=== PATIENT | female | born 1985 | race Caucasian/White ===

== ENCOUNTER 2019-08-01 07:48 | Outpatient (CLI) | payer OTHER ==
--- NOTE | 2019-08-01 09:09 | ULT ---
PELVIC ULTRASOUND INCLUDING TRANSABDOMINAL AND TRANSVAGINAL AND VASCULAR DUPLEX WITH COLOR AND SPECTR AL DOPPLER IMAGING: HISTORY: Ovarian cyst. COMPARISON: None. FINDINGS: The uterus measures 6.5 x 4.5 x 3.1 cm. The endometrium approximates 0.2 cm. Right ovary measures 1 .2 x 1.2 x 2.7 cm. The left ovary is not visualized. No evidence for significant ovarian cyst. No abscess or abnormal fluid collection. IMPRESSION: Nonvisualized left ovary. Unremarkable uterus and right ovary. No evidence for ovarian cyst. No ev idence for other acute process. POS: [facility]
== END 2019-08-01 07:49 | disposition home or self-care (01) ==
LOC: MADULT 07:48
PROVIDERS: ATTEND Family Medicine
DX: Q50.1 Developmental ovarian cyst (principal)
CPT/HCPCS: 76856